=== PATIENT | male | born 1950 | race Hispanic/Latino ===

== ENCOUNTER 2021-06-20 20:56 | Inpatient (IN) | payer OTHER ==
[2021-06-20 22:04] LABS: ALT (SGPT) 60 U/L (8-55); AST (SGOT) 62 U/L (5-34); Acetaminophen Less than 6.0 mcg/mL (10.0-30.0); Albumin 3.7 g/dL (3.4-4.8); Alcohol Less than 10 mg/dL (Less than 10); Alkaline Phosphatase 125 U/L (40-110); Anion Gap 15 mmol/L (10-20); BUN (Urea Nitrogen) 13 mg/dL (8.4-25.7); Bilirubin, Total 2.8 mg/dL (0.2-1.2); Calc. Creatinine Clearance 0 mL/min (70-130); Calcium 9.7 mg/dL (7.8-10.44); Carbon Dioxide 21 mmol/L (23-31); Chloride 107 mmol/L (98-107); Globulin 4.7 g/dL (2.4-3.5); Glucose 239 mg/dL (80-115); Protein, Total 8.4 g/dL (5.8-8.1); Salicylate Less than 8.0 mg/dL (15.0-30.0); Sodium 139 mmol/L (136-145)
[2021-06-20 22:06] LABS: #Eosinphils 0.1 10x3/uL (0.0-0.5); #Monocytes 0.8 10x3/uL (0.0-1.1); #Neutrophils 3.5 10x3/uL (1.5-8.4); %Basophils 0.3 % (0.0-2.0); %Eosinophils 2.4 % (0.0-6.0); %Lymphocytes 21.6 % (18.0-47.0); %Monocytes 14.3 % (0.0-10.0); %Neutrophils 61.2 % (40.0-75.0); Hemoglobin 15.5 g/dL (13.5-17.5); Mean Corpuscular HGB CONC 35.6 g/dL (32.0-36.0); Mean Corpuscular Volume 89.9 fl (81.2-95.1); Mean Platelet Volume 11.8 fl (7.4-10.4); RBC Distribution Width 14.5 % (11.5-14.5); Red Blood Cell (RBC) Count 4.85 10x6/uL (4.32-5.72); White Blood Cell (WBC) Count 5.7 10x3/uL (3.5-10.5)
[2021-06-20 22:07] LABS: Platelet Count 86 10x3/uL (150-450)
[2021-06-20 23:07] LABS: Platelet Morphology Comment Appears Decreased; RBC Morphology Normal
[2021-06-20] MEDS ORDERED: Senokot S 8.6-50 MG TAB PO PRN (23:29)
[2021-06-20] MEDS ORDERED: Calcium Carbonate 500 MG ChewTAB PO PRN (23:29)
[2021-06-20] MEDS ORDERED: Acetaminophen 325 MG TAB PO PRN (23:29)
[2021-06-20] MEDS ORDERED: Ondansetron PF 4 MG/2 ML Vial IVP PRN (23:29)
[2021-06-20] MEDS ORDERED: Dextrose 50% Abboject 50 ML SYRINGE SLOW IVP PRN (23:33)
[2021-06-20] MEDS ORDERED: Dextrose 5% in Water 1,000 ML IV PRN (23:33)
[2021-06-20] MEDS ORDERED: Sodium Chloride 0.9% 1,000 ML IV SCH (23:45)
[2021-06-21 02:08] VITALS: BMI 27.3
[2021-06-21] MEDS: Propranolol 10 MG TAB PO SCH ×2 (02:34→02:44)
[2021-06-21 02:47] LABS: SARS-CoV-2 NAA Rapid Test Not Detected (NotDetected)
[2021-06-21 04:08] LABS: Anion Gap 15 mmol/L (10-20); BUN (Urea Nitrogen) 15 mg/dL (8.4-25.7); Calc. Creatinine Clearance 79 mL/min (70-130); Calcium 9.6 mg/dL (7.8-10.44); Carbon Dioxide 20 mmol/L (23-31); Chloride 110 mmol/L (98-107); Glucose 110 mg/dL (80-115); Magnesium 1.9 mg/dL (1.6-2.6); Sodium 141 mmol/L (136-145)
[2021-06-21 04:10] LABS: ALT (SGPT) 55 U/L (8-55); AST (SGOT) 56 U/L (5-34); Albumin 3.6 g/dL (3.4-4.8); Alkaline Phosphatase 126 U/L (40-110); Bilirubin, Total 2.6 mg/dL (0.2-1.2); Protein, Total 7.9 g/dL (5.8-8.1)
[2021-06-21 04:26] LABS: Hemoglobin 15.2 g/dL (13.5-17.5); Mean Corpuscular HGB CONC 34.9 g/dL (32.0-36.0); Mean Corpuscular Hemoglobin 31.5 pg (27.0-33.0); Mean Corpuscular Volume 90.3 fl (81.2-95.1); Mean Platelet Volume 11.8 fl (7.4-10.4); RBC Distribution Width 14.7 % (11.5-14.5); Red Blood Cell (RBC) Count 4.83 10x6/uL (4.32-5.72); White Blood Cell (WBC) Count 5.5 10x3/uL (3.5-10.5)
[2021-06-21 04:27] LABS: MDiff Complete? YES; Platelet Count 77 10x3/uL (150-450); Platelet Morphology Comment Appears Decreased
[2021-06-21 04:30] LABS: PTT 26.9 sec (22.0-33.0); Prothrombin Time 11.4 sec (9.5-12.1)
[2021-06-21 04:32] LABS: Band 6 % (5-11); Lymphocytes 22 % (21-51); Monocytes 23 % (0-10); Neutrophil 48 % (42-75)
[2021-06-21 04:35] LABS: RBC Morphology Normal
[2021-06-21] MEDS ORDERED: glipiZIDE 10 MG TAB PO SCH (07:30)
[2021-06-21] MEDS ORDERED: metFORMIN 500 MG TAB PO SCH (08:00)
[2021-06-21] MEDS ORDERED: Ferrous Sulfate 325 MG TAB PO SCH (08:00)
[2021-06-21] MEDS ORDERED: Propranolol 40 MG TAB PO SCH (09:00)
[2021-06-21 09:16] LABS: Bilirubin 1+ (Negative); Blood, Urine Negative (Negative); Glucose, Urine (Dipstick) 250 mg/dL (Negative); Ketone, Urine 5 mg/dL (Negative); Leukocyte 25 (Negative); Nitrite Positive (Negative); Protein, Urine (Dipstick) 30 mg/dl (Neg-Trace); pH, Urine 6.5 (5.0-9.0)
[2021-06-21 09:22] LABS: Clarity Clear (Clear)
[2021-06-21 09:25] LABS: Bacteria/HPF Rare-Few HPF (None Seen); RBC/HPF 0-3 HPF (0-3); WBC/HPF 0-3 HPF (0-3)
[2021-06-21 09:26] LABS: Mucous/LPF 1+ LPF (<2+); White Blood Cell Cast 0-3 LPF (None Seen)
[2021-06-21] MEDS ORDERED: Polyethylene Glycol 3350 17 GM Packet PO SCH (10:45)
[2021-06-21] MEDS: Rifaximin 550 MG TAB PO SCH ×2 (13:25→21:43)
[2021-06-21] MEDS: Furosemide 20 MG TAB PO SCH (13:26)
[2021-06-21] MEDS: Hydrochlorothiazide 25 MG TAB PO SCH ×2 (13:28→14:15)
[2021-06-21] MEDS: Pantoprazole 40 MG VIAL IVP SCH (13:29)
[2021-06-21] MEDS: Propranolol 40 MG TAB PO SCH ×2 (13:30→21:44)
[2021-06-21 17:14] LABS: SARS-CoV-2 PCR by NAA Not Detected (NotDetected)
[2021-06-21] MEDS ORDERED: Terazosin HCl 1 MG CAP PO SCH ×2 (21:00)
[2021-06-21] MEDS: Senokot S 8.6-50 MG TAB PO SCH (21:43)
[2021-06-21] MEDS: HumaLOG 300 UNITS/3 ML VIAL SC PRN (21:49)
[2021-06-22 04:35] LABS: PTT 25.3 sec (22.0-33.0); Prothrombin Time 11.3 sec (9.5-12.1)
[2021-06-22 04:39] LABS: Hemoglobin 13.4 g/dL (13.5-17.5); Mean Corpuscular HGB CONC 34.6 g/dL (32.0-36.0); Mean Corpuscular Hemoglobin 31.7 pg (27.0-33.0); Mean Corpuscular Volume 91.5 fl (81.2-95.1); Mean Platelet Volume 12.1 fl (7.4-10.4); Platelet Count 67 10x3/uL (150-450); RBC Distribution Width 14.6 % (11.5-14.5); Red Blood Cell (RBC) Count 4.23 10x6/uL (4.32-5.72); White Blood Cell (WBC) Count 4.3 10x3/uL (3.5-10.5)
[2021-06-22 04:51] LABS: ALT (SGPT) 46 U/L (8-55); AST (SGOT) 43 U/L (5-34); Albumin 3.1 g/dL (3.4-4.8); Alkaline Phosphatase 119 U/L (40-110); Anion Gap 13 mmol/L (10-20); BUN (Urea Nitrogen) 21 mg/dL (8.4-25.7); Bilirubin, Total 2.2 mg/dL (0.2-1.2); Calc. Creatinine Clearance 72 mL/min (70-130); Calcium 8.6 mg/dL (7.8-10.44); Carbon Dioxide 23 mmol/L (23-31); Cardiac Risk 5.1 (Less than 4.5); Chloride 107 mmol/L (98-107); Cholesterol 107 mg/dl (< 200 Desired); Globulin 3.7 g/dL (2.4-3.5); Glucose 239 mg/dL (80-115); HDL Cholesterol 21 mg/dL (>60 Neg Risk); Iron 82 ug/dL (65-175); Iron Binding Capacity, Total 274 mcg/dL (261-462); LDL Cholesterol, Calculated 63 mg/dL; Magnesium 1.8 mg/dL (1.6-2.6); Phosphorus 2.5 mg/dL (2.3-4.7); Potassium 3.5 mmol/L (3.5-5.1); Protein, Total 6.8 g/dL (5.8-8.1); Sodium 139 mmol/L (136-145); Triglycerides 114 mg/dL (Less than 150)
[2021-06-22 04:53] LABS: Iron 82 ug/dL (65-175); Iron Binding Capacity, Total 273 mcg/dL (261-462)
[2021-06-22 05:17] LABS: Ferritin 78.48 ng/mL (22-322); HBSAg Index 0.19 S/CO (0-0.99); Hep B Surf Ag Non-Reactive S/CO (NonReactive)
[2021-06-22 06:43] LABS: MDiff Complete? YES; RBC Morphology Normal
[2021-06-22 06:44] LABS: Platelet Morphology Comment Appears Decreased
[2021-06-22 06:48] LABS: Band 1 % (5-11); Eosinophils 3 % (0-10); Lymphocytes 18 % (21-51); Monocytes 18 % (0-10); Neutrophil 60 % (42-75)
[2021-06-22] MEDS: Rifaximin 550 MG TAB PO SCH (08:08)
[2021-06-22] MEDS: Senokot S 8.6-50 MG TAB PO SCH (08:08)
[2021-06-22] MEDS: Furosemide 20 MG TAB PO SCH (08:09)
[2021-06-22] MEDS: Pantoprazole 40 MG VIAL IVP SCH (08:09)
[2021-06-22] MEDS: Hydrochlorothiazide 25 MG TAB PO SCH (08:09)
[2021-06-22] MEDS ORDERED: Bisacodyl 10 MG SUPP PR PRN (08:13)
[2021-06-22] MEDS ORDERED: FLU VACC QS2021-22(65YR UP)/PF 240 MCG/0.7 ML SYRINGE IM ONE (09:00)
[2021-06-22] MEDS ORDERED: metFORMIN 500 MG TAB PO SCH (09:00)
[2021-06-22] MEDS ORDERED: glipiZIDE 5 MG TAB PO SCH (09:00)
[2021-06-22] MEDS ORDERED: Ferrous Sulfate 325 MG TAB PO SCH (09:00)
[2021-06-22] MEDS ORDERED: Polyethylene Glycol 3350 17 GM Packet PO SCH (09:00)
[2021-06-22] MEDS: Propranolol 40 MG TAB PO SCH (11:17)
[2021-06-22] MEDS ORDERED: Propranolol 10 MG TAB PO SCH ×2 (11:30→21:00)
[2021-06-22 12:26] LABS: Hemoglobin A1c 9.2 % (4.0-6.0)
[2021-06-22 13:49] LABS: Hep B Core Total Ab Non-Reactive (NonReactive); Hep B Core Total Index 0.08 S/CO (0-0.79)
[2021-06-22 13:50] LABS: HBCM Index 0.09 S/CO (0-0.79); Hepatitis B Core IgM Abs Non-Reactive (NonReactive)
[2021-06-22 13:57] LABS: HBSAB Concentration 46.75 mIU/mL; Hep B Surf AB Reactive (NonReactive); Hep C IgG Ab Reflex HepC Qnt (NonReactive)
[2021-06-22 17:07] VITALS: BP 119/67; TEMP 99.1
[2021-06-22] MEDS: HumaLOG 300 UNITS/3 ML VIAL SC PRN (17:12)
[2021-06-23] MEDS ORDERED: Propranolol 10 MG TAB PO SCH (09:00)
== END 2021-06-22 19:40 | DRG 441 ==
LOC: CSHERS 20:56 → CSHTELE 23:29 → UNDOADMIN 06-21 00:39 → CSHTELE 06-21 00:39
PROVIDERS: ADMIT Student in an Organized Health Care Education/Training Program; ATTEND Family Medicine
DX: K72.00 Acute and subacute hepatic failure without coma (principal); G93.41 Metabolic encephalopathy; N40.0 Benign prostatic hyperplasia without lower urinary tract symptoms; M19.90 Unspecified osteoarthritis, unspecified site; F03.90 Unspecified dementia, unspecified severity, without behavioral disturbance, psychotic disturbance, mood disturbance, and anxiety; E11.65 Type 2 diabetes mellitus with hyperglycemia; D69.59 Other secondary thrombocytopenia; D50.9 Iron deficiency anemia, unspecified; I12.9 Hypertensive chronic kidney disease with stage 1 through stage 4 chronic kidney disease, or unspecified chronic kidney disease; Z20.822 Contact with and (suspected) exposure to COVID-19; E11.22 Type 2 diabetes mellitus with diabetic chronic kidney disease; N18.2 Chronic kidney disease, stage 2 (mild); B18.2 Chronic viral hepatitis C; K74.60 Unspecified cirrhosis of liver; E11.40 Type 2 diabetes mellitus with diabetic neuropathy, unspecified; Z87.891 Personal history of nicotine dependence; Z79.4 Long term (current) use of insulin; Z79.899 Other long term (current) drug therapy; Z91.14 Patient's other noncompliance with medication regimen; Z91.010 Allergy to peanuts
CPT/HCPCS: 36415; 36416; 70450; 71045; 76705; 80048; 80053; 80061; 80076; 80307; 81001; 82140; 82728; 83036; 83540; 83550; 83735; 84100; 84443; 85025; 85610; 85730; 86704; 86705; 86706; 86803; 87340; 87522; 93005; C9113; J1815; J7050; U0002; U0003; U0005

== ENCOUNTER 2021-08-15 04:10 | Emergency (ER) | payer OTHER ==
[2021-08-15] MEDS ORDERED: Ondansetron PF 4 MG/2 ML Vial ONE (04:50)
[2021-08-15 05:05] LABS: ALT (SGPT) 39 U/L (8-55); AST (SGOT) 47 U/L (5-34); Albumin 3.6 g/dL (3.4-4.8); Alkaline Phosphatase 133 U/L (40-110); Anion Gap 13 mmol/L (10-20); BUN (Urea Nitrogen) 16 mg/dL (8.4-25.7); Bilirubin, Total 2.4 mg/dL (0.2-1.2); CK (CPK) 53 U/L (30-200); Calc. Creatinine Clearance 0 mL/min (70-130); Calcium 8.9 mg/dL (7.8-10.44); Carbon Dioxide 22 mmol/L (23-31); Chloride 110 mmol/L (98-107); Globulin 4.3 g/dL (2.4-3.5); Glucose 216 mg/dL (80-115); Lipase 36 U/L (8-78); Potassium 3.6 mmol/L (3.5-5.1); Protein, Total 7.9 g/dL (5.8-8.1); Sodium 141 mmol/L (136-145)
[2021-08-15 05:07] LABS: #Eosinphils 0.2 10x3/uL (0.0-0.5); #Monocytes 0.8 10x3/uL (0.0-1.1); #Neutrophils 3.4 10x3/uL (1.5-8.4); %Basophils 0.5 % (0.0-2.0); %Eosinophils 2.7 % (0.0-6.0); %Lymphocytes 19.8 % (18.0-47.0); %Monocytes 14.7 % (0.0-10.0); %Neutrophils 62.1 % (40.0-75.0); Hemoglobin 14.1 g/dL (13.5-17.5); Mean Corpuscular HGB CONC 34.5 g/dL (32.0-36.0); Mean Corpuscular Hemoglobin 31.3 pg (27.0-33.0); Mean Corpuscular Volume 90.9 fl (81.2-95.1); Mean Platelet Volume 11.6 fl (7.4-10.4); Platelet Count 50 10x3/uL (150-450); RBC Distribution Width 14.2 % (11.5-14.5); White Blood Cell (WBC) Count 5.5 10x3/uL (3.5-10.5)
[2021-08-15 05:22] LABS: SARS-CoV-2 NAA Rapid Test DETECTED (NotDetected)
[2021-08-15 05:39] LABS: Bilirubin Neg (Negative); Blood, Urine Negative (Negative); Clarity Clear (Clear); Glucose, Urine (Dipstick) >=1000 mg/dL (Negative); Ketone, Urine Negative (Negative); Leukocyte Negative (Negative); Nitrite Negative (Negative); Protein, Urine (Dipstick) 30 mg/dl (Neg-Trace); Specific Gravity, Urine 1.015 (1.002-1.036)
[2021-08-15 05:48] LABS: Bacteria/HPF Rare-Few HPF (None Seen); RBC/HPF 0-3 HPF (0-3); Squamous Epithelial 0-3 HPF (0-3); WBC/HPF 0-3 HPF (0-3)
[2021-08-15 05:51] LABS: PTT 27.6 sec (22.0-33.0); Prothrombin Time 11.4 sec (9.5-12.1)
[2021-08-15 06:00] LABS: Platelet Morphology Comment Appears Decreased; RBC Morphology Normal
== END 2021-08-15 10:56 | disposition short-term general hospital (02) ==
LOC: CSHERS 04:10
DX: U07.1 COVID-19 (principal); K72.90 Hepatic failure, unspecified without coma; N40.0 Benign prostatic hyperplasia without lower urinary tract symptoms; M19.90 Unspecified osteoarthritis, unspecified site; D50.9 Iron deficiency anemia, unspecified; E11.22 Type 2 diabetes mellitus with diabetic chronic kidney disease; E11.40 Type 2 diabetes mellitus with diabetic neuropathy, unspecified; N18.9 Chronic kidney disease, unspecified; D63.1 Anemia in chronic kidney disease; F03.90 Unspecified dementia, unspecified severity, without behavioral disturbance, psychotic disturbance, mood disturbance, and anxiety; Z79.899 Other long term (current) drug therapy; Z79.84 Long term (current) use of oral hypoglycemic drugs; Z79.4 Long term (current) use of insulin
CPT/HCPCS: 80053; 81003; 81015; 82140; 82550; 83690; 84484; 85025; 85610; 85730; 93005; 96374; J2405; U0002